=== PATIENT | female | born 1950 | race Caucasian/White ===

== ENCOUNTER → 2016-07-11 | Outpatient (CLI) | payer MEDICARE, BC ==
[~2016-07-11] MED LIST: CALCIUM600 M1 PO; DESYREL 100MG100 MG PO; ELIQUIS 5MG PO; MULTIPLE VITAMI1 CAP PO; OSCAL 500 TAB500 MG PO; VERAPAMIL120 MG/TA1 PO
== END ==
LOC: MC.RAD 10:00
DX: Z12.31 Encounter for screening mammogram for malignant neoplasm of breast (principal)

== ENCOUNTER 2016-07-14 12:37 | Inpatient (IN) | payer MEDICARE, BC ==
[2016-07-14] VITALS (286 sets, daily range): BP systolic 108–122; BP diastolic 80–89; PULSE 84–108; TEMP 98–98.4; O2SAT 93–100
[~2016-07-14] VITALS: Ht 172.7 cm; Wt 83.2 kg
[~2016-07-14 12:37] MED LIST changes: -ELIQUIS 5MG PO; -OSCAL 500 TAB500 MG PO; -VERAPAMIL120 MG/TA1 PO
[2016-07-14] MEDS ORDERED: OSCAL 500 TAB500 MG PO (12:46)
[2016-07-14 13:14] LABS: BASO # 0.1 (0.0-0.2); BASO % 0.6 % (0.0-2.0); EOS # 0.2 (0.0-0.7); EOS % 1.7 % (0-4.0); GRAN # 5.9 (1.4-6.5); GRAN % 59.2 % (42.2-75.2); HEMATOCRIT 49.9 % (37.0-47.0); HEMOGLOBIN 16.4 g/dl (12.5-16.0); LYMPH # 3.1 (1.2-3.4); LYMPH % 31.3 % (20.0-51.0); MEAN CELL VOLUME 88 fl (80.0-100.0); MEAN CORPUSCULAR HEMOGLOBIN 29 pg (27.0-31.0); MEAN CORPUSCULAR HGB CONC 33 g/dl (33.0-37.0); MEAN PLATELET VOLUME 9.3 fl (7.4-10.4); MONO # 0.7 (0.1-0.6); MONO % 6.9 % (1.7-9.3); PLATELET COUNT 294 K/mm3 (130-400); RED BLOOD COUNT 5.68 M/mm3 (4.10-5.30); REDCELL DISTRIBUTION WIDTH-CV 12.9 % (11.5-14.5)
[2016-07-14 13:22] LABS: ADJUSTED CALCIUM 9.3 mg/dL (8.4-10.2); ALANINE AMINOTRANSFERASE 73 U/L (9-52); ALBUMIN 4.5 gm/dL (3.5-5.0); ALKALINE PHOSPHATASE 138 U/L (50-136); ANION GAP 14 mmol/L (7-16); BLOOD UREA NITROGEN 23 mg/dL (7-17); CALCIUM 9.7 mg/dL (8.4-10.2); CARBON DIOXIDE 27 mmol/L (22-30); CHLORIDE 101 mmol/L (98-107); CREATININE, serum 0.91 mg/dL (0.52-1.25); GLUCOSE 108 mg/dL (74-106); POTASSIUM 3.7 mmol/L (3.4-5.0); SODIUM 142 mmol/L (137-145); TOTAL PROTEIN 7.3 gm/dL (6.4-8.2)
[2016-07-14 13:25] LABS: PARTIAL THROMBOPLASTIN TIME 33.4 SECONDS (26.0-37.0)
[2016-07-14 13:34] LABS: B-TYPE NATRIURETIC PEPTIDE 2600 pg/mL (0-125); TROPONIN-I < 0.012 ng/mL (0.000-0.034)
[2016-07-15] VITALS (551 sets, daily range): BP systolic 114–131; BP diastolic 73–100; PULSE 64–110; TEMP 97.1–98.6; O2SAT 84–100
[2016-07-15 07:36] LABS: BASO % 0.6 % (0.0-2.0); EOS # 0.2 (0.0-0.7); EOS % 2.6 % (0-4.0); GRAN % 58.7 % (42.2-75.2); HEMATOCRIT 46.2 % (37.0-47.0); HEMOGLOBIN 15.1 g/dl (12.5-16.0); LYMPH # 2.2 (1.2-3.4); MEAN CELL VOLUME 88 fl (80.0-100.0); MEAN CORPUSCULAR HEMOGLOBIN 29 pg (27.0-31.0); MEAN CORPUSCULAR HGB CONC 33 g/dl (33.0-37.0); MEAN PLATELET VOLUME 9.2 fl (7.4-10.4); MONO # 0.4 (0.1-0.6); MONO % 5.8 % (1.7-9.3); PLATELET COUNT 235 K/mm3 (130-400); RED BLOOD COUNT 5.27 M/mm3 (4.10-5.30); WHITE BLOOD COUNT 6.9 K/mm3 (4.8-10.8)
[2016-07-15 07:44] LABS: CALCIUM 9.1 mg/dL (8.4-10.2); CREATININE, serum 0.69 mg/dL (0.52-1.25)
[2016-07-15] MEDS ORDERED: ELIQUIS 5MG PO ×2 (17:16→17:56)
[2016-07-15] MEDS ORDERED: VERAPAMIL120 MG/TA1 PO ×2 (17:17→17:49)
== END 2016-07-15 18:30 | disposition home or self-care (01) | DRG 310 ==
LOC: COL.ER 12:37 → IMCU 12:55
PROVIDERS: Emergency Medicine; Internal Medicine Cardiovascular Disease
PROC: 5A2204Z Restoration of Cardiac Rhythm, Single (ICD-10-PCS; principal; 2016-07-15)
DX: I48.91 Unspecified atrial fibrillation (principal); I08.0 Rheumatic disorders of both mitral and aortic valves
CPT/HCPCS: 99238; J2704; J3010; J7030; J7050

== ENCOUNTER → 2017-07-13 | Outpatient (CLI) | payer MEDICARE, BC ==
[~2017-07-13] MED LIST changes: +ASPIRIN 32325 MG/TAB PO; +CALCIUM CARBON650 M2 PO; +ELIQUIS 5MG PO; +OSCAL 500 TAB500 MG PO; +TAMBOCOR 1100 MG/TAB PO; +VERAPAMIL120 MG/TA1 PO; +XARELTO20 MG PO
== END ==
LOC: MC.RAD 11:20
DX: Z12.31 Encounter for screening mammogram for malignant neoplasm of breast (principal); N64.89 Other specified disorders of breast

== ENCOUNTER → 2017-07-21 | Outpatient (CLI) | payer MEDICARE, BC | LOC: MC.RAD 09:26 | DX: R92.8 Other abnormal and inconclusive findings on diagnostic imaging of breast (principal) ==

== ENCOUNTER → 2018-08-09 | Outpatient (CLI) | payer MEDICARE, BC | LOC: MC.RAD 10:30 | DX: Z12.31 Encounter for screening mammogram for malignant neoplasm of breast (principal) ==

== ENCOUNTER → 2019-03-09 | Outpatient (CLI) | payer MEDICARE, BC | LOC: COL.RAD 03-07 10:30 | DX: Z01.812 Encounter for preprocedural laboratory examination (principal); K80.20 Calculus of gallbladder without cholecystitis without obstruction; N20.0 Calculus of kidney; M43.16 Spondylolisthesis, lumbar region; M48.061 Spinal stenosis, lumbar region without neurogenic claudication; M46.86 Other specified inflammatory spondylopathies, lumbar region; Z90.710 Acquired absence of both cervix and uterus | CPT/HCPCS: Q9967 ==

== ENCOUNTER → 2019-09-29 | Outpatient (CLI) | payer MEDICARE, BC | LOC: MC.RAD 15:21 | DX: Z12.31 Encounter for screening mammogram for malignant neoplasm of breast (principal) ==

== ENCOUNTER → 2020-10-11 | Outpatient (CLI) | payer MEDICARE, BC | LOC: MC.RAD 10:17 | DX: Z12.31 Encounter for screening mammogram for malignant neoplasm of breast (principal) ==

== ENCOUNTER → 2021-10-28 | Outpatient (CLI) | payer MEDICARE, BC | LOC: MC.RAD 14:15 | DX: Z12.31 Encounter for screening mammogram for malignant neoplasm of breast (principal) ==

== ENCOUNTER → 2021-10-31 | Outpatient (CLI) | payer MEDICARE, BC | LOC: MC.RAD 09:11 | DX: N60.02 Solitary cyst of left breast (principal) ==

== ENCOUNTER 2023-04-13 13:16 | Emergency (ER) | payer MEDICARE, BC ==
[~2023-04-13] VITALS: Ht 170.2 cm; Wt 84.1 kg
[2023-04-13 13:27] VITALS: TEMP 97.8
[2023-04-13 13:46] LABS: BASO % 0.5 % (0.0-2.0); EOS # 0.1 K/mm3 (0.0-0.7); EOS % 1.6 % (0.0-4.0); GRAN # 5.4 K/mm3 (1.4-6.5); GRAN % 66.4 % (42.2-75.2); HEMATOCRIT 47.5 % (37.0-47.0); HEMOGLOBIN 15.5 g/dl (12.5-16.0); LYMPH % 24.4 % (20.0-51.0); MEAN CELL VOLUME 91 fl (80.0-100.0); MEAN CORPUSCULAR HEMOGLOBIN 30 pg (27-31); MEAN CORPUSCULAR HGB CONC 33 g/dl (33.0-37.0); MEAN PLATELET VOLUME 9.1 fl (7.4-10.4); MONO # 0.6 K/mm3 (0.1-0.6); MONO % 6.9 % (1.7-9.3); PLATELET COUNT 263 K/mm3 (130-400); RED BLOOD COUNT 5.23 M/mm3 (4.10-5.30); REDCELL DISTRIBUTION WIDTH-CV 12.7 % (11.5-14.5)
[2023-04-13 14:00] LABS: ALBUMIN 3.9 gm/dL (3.4-4.8); BILIRUBIN,TOTAL 0.5 mg/dL (0.2-1.2); CALCIUM 9.8 mg/dL (8.4-10.2); CREATININE, serum 0.85 mg/dL (0.57-1.11); POTASSIUM 3.8 mmol/L (3.5-4.5)
[2023-04-13 14:59] VITALS: BP 142/87; PULSE 62
== END 2023-04-13 15:00 | disposition home or self-care (01) ==
LOC: COL.ER 13:16
PROVIDERS: Personal Emergency Response Attendant
DX: I10 Essential (primary) hypertension (principal); R20.2 Paresthesia of skin

== ENCOUNTER → 2023-12-10 | Outpatient (CLI) | payer MEDICARE | LOC: MC.RAD 10:26 | DX: Z12.31 Encounter for screening mammogram for malignant neoplasm of breast (principal) ==